=== PATIENT | male | born 1950 | race Native Hawaiian/Other Pacific Islander ===

== ENCOUNTER 2018-03-21 18:20 | Emergency (ER) | payer OTHER ==
[~2018-03-21] VITALS: Ht 182.9 cm; Wt 81.6 kg
[2018-03-21 18:30] VITALS: BP 176/84; TEMP 98.5
== END 2018-03-21 20:42 | disposition home or self-care (01) ==
LOC: ED 18:20
DX: M79.673 Pain in unspecified foot (principal)
CPT/HCPCS: 99281

== ENCOUNTER 2021-07-06 16:03 | Emergency (ER) | payer OTHER ==
[~2021-07-06] VITALS: Ht 182.9 cm; Wt 88.5 kg
[2021-07-06 16:03] VITALS: TEMP 97.8
[2021-07-06 17:06] LABS: PLATELET COUNT 218 K/uL (142-355); POTASSIUM 3.6 mmol/L (3.6-5.2)
[2021-07-06 18:30] VITALS: BP 120/51
[2021-07-06 19:35] LABS: PARTIAL THROMBOPLASTIN TIME 32.5 SECONDS (24.5-33.6)
== END 2021-07-06 18:56 | disposition short-term general hospital (02) ==
LOC: ED 16:07
PROVIDERS: Hospitalist
DX: M79.662 Pain in left lower leg (principal); R22.42 Localized swelling, mass and lump, left lower limb; Z98.890 Other specified postprocedural states
CPT/HCPCS: 80048; 85027; 85379; 85610; 85730; 96360; 96365; 96372; 96375; 96376; 99284; J1170; J1650; J1885; J2405; J3370

== ENCOUNTER 2023-02-05 15:25 | Outpatient (CLI) | payer OTHER ==
[2023-02-05 15:59] LABS: PLATELET COUNT 220 K/uL (142-355)
[2023-02-05 16:19] LABS: POTASSIUM 4.6 mmol/L (3.6-5.2)
== END 2023-02-05 19:01 | disposition home or self-care (01) ==
LOC: LAB 15:25
PROVIDERS: ATTEND Internal Medicine
DX: I10 Essential (primary) hypertension (principal); I73.9 Peripheral vascular disease, unspecified; R06.09 Other forms of dyspnea
CPT/HCPCS: 80053; 80061; 83880; 84439; 84443; 85027; 85379

== ENCOUNTER 2023-02-14 10:02 | Outpatient (CLI) | payer OTHER | END 2023-02-14 19:05 | disposition home or self-care (01) | LOC: US 10:02 | PROVIDERS: ATTEND Internal Medicine | DX: Z13.6 Encounter for screening for cardiovascular disorders (principal); Z12.2 Encounter for screening for malignant neoplasm of respiratory organs; Z87.891 Personal history of nicotine dependence; Z09 Encounter for follow-up examination after completed treatment for conditions other than malignant neoplasm ==